=== PATIENT | female | born 1965 | race African-American/Black ===

== ENCOUNTER 2017-04-24 21:10 | Emergency (ER) | payer SELFPAY | END 2017-04-24 22:44 | disposition left against medical advice (07) | LOC: ER 21:10 | DX: R51 Headache (principal); Z53.21 Procedure and treatment not carried out due to patient leaving prior to being seen by health care provider ==

== ENCOUNTER 2017-05-27 21:43 | Emergency (ER) | payer OTHER ==
[~2017-05-27] VITALS: Ht 165.1 cm; Wt 60.0 kg
[2017-05-27 22:49] VITALS: BP 138/98
== END 2017-05-27 22:55 | disposition left against medical advice (07) ==
LOC: ER 21:53
DX: F41.9 Anxiety disorder, unspecified (principal); Z53.21 Procedure and treatment not carried out due to patient leaving prior to being seen by health care provider

== ENCOUNTER 2017-12-06 19:11 | Emergency (ER) | payer OTHER | END 2017-12-06 19:56 | disposition left against medical advice (07) | LOC: ER 19:11 | DX: H92.09 Otalgia, unspecified ear (principal); Z53.21 Procedure and treatment not carried out due to patient leaving prior to being seen by health care provider ==

== ENCOUNTER 2017-12-15 20:54 | Emergency (ER) | payer OTHER ==
[~2017-12-15] VITALS: Ht 154.9 cm; Wt 63.6 kg
[2017-12-16] MEDS ORDERED: IBUPROFEN 800MG TABLET ONE
[2017-12-16] MEDS ORDERED: IBUPROFEN 800MG TABLET PO ONE (00:45)
[2017-12-16 01:00] VITALS: BP 122/80
== END 2017-12-16 01:12 | disposition home or self-care (01) ==
LOC: ER 20:54
DX: H65.191 Other acute nonsuppurative otitis media, right ear (principal); I10 Essential (primary) hypertension; J45.909 Unspecified asthma, uncomplicated; F12.10 Cannabis abuse, uncomplicated; Z98.890 Other specified postprocedural states
CPT/HCPCS: 99283

== ENCOUNTER 2019-03-29 12:23 | Emergency (ER) | payer OTHER ==
[~2019-03-29] VITALS: Ht 160 cm; Wt 60.0 kg
[2019-03-29 12:47] VITALS: BP 149/92
== END 2019-03-30 00:51 | disposition left against medical advice (07) ==
LOC: ER 12:23
DX: R07.89 Other chest pain (principal); Z53.21 Procedure and treatment not carried out due to patient leaving prior to being seen by health care provider
CPT/HCPCS: 93005

== ENCOUNTER 2019-07-23 14:35 | Inpatient (IN) | payer MEDICAID, OTHER ==
[~2019-07-23] VITALS: Ht 165.1 cm; Wt 74.8 kg
[2019-07-23] MEDS ORDERED: ONDANSETRON 4MG ODT PO ONE (15:15)
[2019-07-23 15:42] LABS: BASOPHILS % 1.3 % (0.0-2.0); HEMATOCRIT. 40.4 % (36.0-48.0); HEMOGLOBIN. 13.6 g/dL (12.0-16.0); LYMPHOCYTES % 8.6 % (20.0-50.0); MEAN CORPUSCULAR HEMOGLOBIN 31.9 pg (28.0-32.0); MEAN CORPUSCULAR VOLUME 94.6 fL (81.0-99.0); MEAN PLATELET VOLUME 7.4 fl (7.4-10.4); MONOCYTES % 5.6 % (2.0-8.0); NEUTROPHILS % 84.5 % (40.0-76.0); PLATELET 322 x1000/uL (130-400); RED BLOOD CELL COUNT 4.28 mill/uL (4.2-5.4); RED CELL DISTRIBUTION WIDTH 16.6 % (11.6-14.6)
[2019-07-23 16:10] LABS: CHLORIDE 98 mEq/L (98-107)
[2019-07-23] MEDS ORDERED: SODIUM CHLORIDE 0.9% 1,000 ML IV ONE (18:34)
[2019-07-23] MEDS ORDERED: ONDANSETRON HCL 4MG/2ML INJ IV STA (18:34)
[2019-07-23] MEDS ORDERED: MORPHINE SULFATE 4 MG/ML CPJ (NOT FOR IM USE) IV STA (18:34)
[2019-07-23] MEDS ORDERED: POTASSIUM CHLORIDE 20MEQ TABLET SR PO ONE (19:15)
[2019-07-23] MEDS ORDERED: ASPIRIN 325MG EC TABLET PO ONE (21:15)
[2019-07-23] MEDS: ONDANSETRON HCL 4MG/2ML INJ IV PRN (21:37)
[2019-07-23] MEDS: ACETAMINOPHEN 325MG TABLET PO PRN (21:42)
[2019-07-24] MEDS: OMEPRAZOLE 20MG CAPSULE EXTENDED RELEASE PO SCH ×2 (06:00→21:54)
[2019-07-24] MEDS: ONDANSETRON HCL 4MG/2ML INJ IV PRN (06:01)
[2019-07-24] MEDS: ACETAMINOPHEN 325MG TABLET PO PRN (06:10)
[2019-07-24 07:30] VITALS: BP_SYST 133; BP_SYST 155; BP_DIAS 81; BP_DIAS 89
[2019-07-24 08:00] VITALS: BP 155/81
[2019-07-24] MEDS: MORPHINE SULFATE 2 MG/ML CPJ (NOT FOR IM USE) IV PRN ×2 (11:41→17:55)
[2019-07-24] MEDS: METOCLOPRAMIDE HCL 10MG/2ML VIAL IV SCH ×2 (11:41→17:55)
[2019-07-24 12:00] VITALS: BP 125/77
[2019-07-24 12:10] LABS: CHLORIDE 100 mEq/L (98-107)
[2019-07-24] MEDS: SODIUM CHLORIDE 0.9% 1,000 ML IV SCH ×2 (12:53→21:54)
[2019-07-24] MEDS ORDERED: POTASSIUM CHLORIDE 20MEQ TABLET SR PO NR (14:00)
[2019-07-24 16:00] VITALS: BP 115/76
[2019-07-24 20:00] VITALS: BP 136/86
[2019-07-25] VITALS: BP 136/78
[2019-07-25] MEDS: METOCLOPRAMIDE HCL 10MG/2ML VIAL IV SCH ×4 (01:28→17:18)
[2019-07-25 04:00] VITALS: BP 130/80
[2019-07-25] MEDS: MORPHINE SULFATE 2 MG/ML CPJ (NOT FOR IM USE) IV PRN ×2 (08:10→13:24)
[2019-07-25] MEDS: OMEPRAZOLE 20MG CAPSULE EXTENDED RELEASE PO SCH (08:10)
[2019-07-25] MEDS: SODIUM CHLORIDE 0.9% 1,000 ML IV SCH ×2 (08:14→17:45)
[2019-07-25 16:00] VITALS: BP 147/92
[2019-07-25 18:30] VITALS: BP 113/73
== END 2019-07-25 18:55 | disposition home or self-care (01) | DRG 249 ==
LOC: ER 14:35 → EDBEDREQ 18:10 → ENRESERV 22:53 → 5WST 23:56
PROVIDERS: ADMIT Internal Medicine; ATTEND Internal Medicine
DX: K52.9 Noninfective gastroenteritis and colitis, unspecified (principal); K76.0 Fatty (change of) liver, not elsewhere classified; D25.9 Leiomyoma of uterus, unspecified; E78.5 Hyperlipidemia, unspecified; E87.6 Hypokalemia; F12.90 Cannabis use, unspecified, uncomplicated; F17.210 Nicotine dependence, cigarettes, uncomplicated; E78.00 Pure hypercholesterolemia, unspecified; K76.89 Other specified diseases of liver; I10 Essential (primary) hypertension; J45.909 Unspecified asthma, uncomplicated; Z90.49 Acquired absence of other specified parts of digestive tract; Z79.899 Other long term (current) drug therapy
CPT/HCPCS: 36415; 71045; 74176; 80048; 80053; 83036; 84145; 84484; 85025; 93005; 99285; J2270; J2405; J2765; J7030; Q0162